=== PATIENT | male | born 1955 | race Caucasian/White ===

== ENCOUNTER 2023-04-11 04:30 | Emergency (ER) | payer BC, SELFPAY ==
[2023-04-11 04:31] VITALS: BP 172/91; PULSE 67; RESP 18; TEMP 36.8; O2SAT 97; BMI 49.7
--- NOTE | 2023-04-11 04:55 | ED.VIS.BACK ---
HPI History of Present Illness Chief Complaint: Back Informant: patient Onset/Context/Timing Onset: Days (3) Context: Gradual Onset Timing: Continuous Quality: Sharp Location: Lumbar Worsened by: improves with - (Sitting and standing from a seated position.) Relieved by: - (Advil, TENS unit) Associated Symptoms Associated Symptoms: Negative for Numbness, Tingling, Radiation to Right Leg, Radiation to Left Leg, Fever, Abdominal Pain, Dysuria, Unable to Ambulate, Unable to Transfer, Urinary Retention, Urinary Incontinence, Constipation or Fecal Incontinence Narrative Narrative: Patient presents with back pain that has been getting worse over the past 3 days. Patient describes it as sharp. Patient states it is gradually gotten worse. Patient states it is constant. Patient denies any trauma or injury. Patient states it is over the lower lumbar area. Patient states it feels like his muscles go into spasm at times. Patient states it is worse when he sits down and then stands from a seated position. Patient states he took some Advil which helped. Patient states he also put a TENS unit on his back which helped. Patient denies any radiation of the pain down his legs. Patient denies any numbness or tingling. Patient denies any bowel or bladder changes. Patient denies any saddle anesthesia. [facility] Medical History (Updated 04/11/23 @ 05:[address] Josef Mancia DO) HLD (hyperlipidemia) Morbid obesity with BMI of 45.0-49.9, adult CLOTILDE (obstructive sleep apnea) Medical History no medical history Home Medications diazepam 5 mg tablet 5 mg PO Q8 PRN Muscle Spasm #10 tabs 04/11/23 [Rx Last Taken Unknown] hydrocodone-acetaminophen 5-325mg 5mg-325mg 1 tab PO Q6H PRN PRN Pain 3 days #10 TABLETS 04/11/23 [Rx Last Taken Unknown] Allergy/AdvReac Type Severity Reaction Status Date / Time No Known Allergies Allergy Verified 04/11/23 04:34 Surgical History no surgical history no surgical history Social History Smoking Status: Never smoker ROS ROS ED Constitutional Constitutional ED: Denies chills or fever(s) Eyes Eyes: Denies blurry vision or change in vision ENT ENT ED: Denies rhinorrhea or sore throat Cardiovascular Cardiovascular: Denies chest pain or palpitations Respiratory/Chest Respiratory/Chest: Denies cough or dyspnea Gastrointestinal Gastrointestinal: Denies nausea or vomiting Genitourinary Genitourinary ED: Denies dysuria or hematuria Musculoskeletal Musculoskeletal: Reports back pain; Denies neck pain Integumentary Denies abscess or rash Neurologic Neurologic: Denies headache(s) or weakness Allergic/Immunologic Allergic/Immunologic ED: Denies mouth swelling or urticaria EXAM Physical Exam Const Vital Signs: 04/11/23 04:31 Temperature 98.3 F Temperature Source Oral Pulse Rate 67 Respiratory Rate 18 Blood Pressure 172/91 H Blood Pressure Mean 118 Pulse Ox 97 Oxygen Delivery Method Room Air Positive well nourished, well developed and obese General Appearance ED: well developed and NAD Nutritional Appearance: obese HEENT Reports moist mucous membranes Neck supple and no JVD Back/Spine Back/Spine Narrative: There is tenderness and spasm of the lumbar paraspinal muscles bilaterally. There is no midline tenderness. There is no bony crepitance or step-off. Range of motion was limited in all motions of the lumbar spine secondary to pain. Strength is 5/5 bilaterally in the lower extremities. There are no sensory deficits noted. Deep tendon reflexes are 2+/4 bilaterally in the lower extremities. Lumbar Spine / Lower Back: ROM limited and straight leg raise negative bilaterally Neuro oriented x3 and no sensory deficits noted Sensorium / Orientation: alert Motor Exam: strength 5/5 throughout Deep Tendon Reflexes: Rt Patellar (L4): 2+, Lt Patellar (L4): 2+, Rt Ankle (S1): 2+ and Lt Ankle (S1): 2+ Deep Tendon Reflexes Back: Rt Patellar (L4): 2+, Lt Patellar (L4): 2+, Rt Ankle (S1): 2+ and Lt Ankle (S1): 2+ Psych mental status grossly normal MDM MDM MDM Narrative Medical decision making narrative: Since there is no trauma or direct injury, I do not feel x-rays are necessary at this time. Patient was given injection of Toradol and Norflex here. Patient was advised that this is most likely muscular strain and spasm. Treatment and Re-Evaluation Narrative: On reevaluation, patient stated he was starting to feel better. Patient states the spasm seems to be improving. Patient was given a dose of [place] here. Patient was given prescriptions for [place] and Valium. Patient was instructed use ice to the area. Patient was instructed to follow-up with his primary care physician in 5 to 7 days. Patient and spouse understood and were agreeable with the plan. All questions were answered. Discharge Plan Triage Chief Complaint: Back ED Provider: Josef Mancia Dx/Rx/DC Orders Clinical Impression: Acute lumbar myofascial strain, Morbid obesity with BMI of 45.0-49.9, adult Instructions: ED Back Spasm, No Trauma, ED Back Sprain/Strain Prescriptions: New hydrocodone-acetaminophen [hydrocodone-acetaminophen] 5-325 mg tablet 1 tab PO Q6H PRN PRN (Reason: Pain) 3 Days Qty: 10 0RF diazepam [diazepam] 5 mg tablet 5 mg PO Q8 PRN (Reason: Muscle Spasm) Qty: 10 0RF Primary Care Provider: Yazan Pettit Referrals: Yazan Pettit MD [Primary Care Provider] - 5-7 Days Disposition Disposition: Home, Self Care
[2023-04-11] MEDS: Orphenadrine 60 MG/2 ML Ampul IM (05:01)
[2023-04-11] MEDS: Ketorolac 30 MG/ML Syringe IM (05:01)
[2023-04-11] MEDS: HYDROcodone Bitartrate/Apap 5/325 Tablet PO (06:02)
[2023-04-11 06:04] VITALS: BP 138/79; PULSE 71; RESP 18; O2SAT 98
== END 2023-04-11 06:05 | disposition home or self-care (01) ==
PROVIDERS: Emergency Provider Emergency Medicine; PCP Family Medicine; Visit Provider Emergency Medicine
DX: S39.012A Strain of muscle, fascia and tendon of lower back, initial encounter (principal); E66.01 Morbid (severe) obesity due to excess calories; Z68.42 Body mass index [BMI] 45.0-49.9, adult; G47.33 Obstructive sleep apnea (adult) (pediatric); X58.XXXA Exposure to other specified factors, initial encounter
CPT/HCPCS: 96372; 99283